=== PATIENT | male | born 1930 | race Caucasian/White ===

== ENCOUNTER 2017-01-29 12:43 | Inpatient (IN) | payer MEDICARE, MEDICAID ==
[~2017-01-29] VITALS: Ht 167.6 cm; Wt 88.0 kg
[~2017-01-29 12:43] MED LIST: AMLO5TAB4 PO; ARIP2TAB9 PO; CLON0.5T PO; DONE10TA44 PO; MEMA10TA PO; OMEP20TA68 PO; Paroxetine Hcl PO; SIMV10TA6 PO; TAMS0.4C34 PO
[2017-01-29] MEDS ORDERED: IV NORMAL SALINE 1000 ML BAG IV ONE (13:45)
[2017-01-29] MEDS ORDERED: LEVOFLOXACIN 750MG/D5W 150 ML IV ONE ×2 (13:45→14:00)
[2017-01-29 13:55] LABS: BASOPHILS % (AUTO) 0.4 % (0.0-2.0); EOSINOPHILS # (AUTO) 0.1 K/uL (0.0-0.7); EOSINOPHILS % (AUTO) 1.8 % (0.0-7.0); HEMATOCRIT 41.4 % (40.0-50.0); HEMOGLOBIN 13.4 g/dL (14.0-18.0); LYMPHOCYTES # (AUTO) 2.1 K/uL (0.8-4.8); LYMPHOCYTES % (AUTO) 28.9 % (20.5-51.5); MEAN CORPUSCULAR HEMOGLOBIN 28.5 uug (27.0-31.0); MEAN CORPUSCULAR HGB CONC 32 g/dL (32.0-37.0); MEAN CORPUSCULAR VOLUME 88.1 fL (82.0-92.0); MONOCYTES # (AUTO) 0.6 K/uL (0.1-1.30); MONOCYTES % (AUTO) 8.3 % (0.0-11.0); NEUTROPHILS # (AUTO) 4.6 K/uL (1.8-8.9); NEUTROPHILS % (AUTO) 60.6 % (38.5-71.5); PLATELET COUNT (AUTO) 200 K/uL (150-450); RED CELL DISTRIBUTION WIDTH 13.2 % (11.5-14.5); WHITE BLOOD COUNT (AUTO) 7.4 K/uL (4.0-11.2)
[2017-01-29 14:04] LABS: CALCIUM 8.9 mg/dL (8.5-10.1); POTASSIUM 4.1 mmol/L (3.5-5.1)
[2017-01-29 14:05] LABS: CREATININE 1.4 mg/dL (0.6-1.3)
[2017-01-29 14:12] LABS: TROPONIN I < 0.017 ng/mL (0.00-0.056)
[2017-01-29 14:17] LABS: BILIRUBIN,DIRECT 0.1 mg/dL (0.0-0.2); BILIRUBIN,TOTAL 0.4 mg/dL (0.2-1.0); TOTAL PROTEIN, SERUM 6.7 g/dL (6.4-8.2)
[2017-01-29 14:20] LABS: LACTIC ACID 1.6 mmol/L (0.4-2.0)
[2017-01-29 15:20] VITALS: BP 150/73
[2017-01-29] MEDS ORDERED: ACETAMINOPHEN 325 MG TABLET PO PRN (16:45)
[2017-01-29] MEDS ORDERED: LEVOFLOXACIN 500 MG/D5W 500 MG in PREMIXED 1 EACH IV SCH (16:45)
[2017-01-29] MEDS ORDERED: MORPHINE SULFATE 2 MG/1 ML DISP.SYRIN IV PRN (16:45)
[2017-01-29] MEDS ORDERED: ONDANSETRON 4 MG/2 ML VIAL IV PRN (16:45)
[2017-01-29] MEDS ORDERED: MAGNESIUM HYDROXIDE 30 ML LIQUID UDC PO PRN (16:45)
[2017-01-29 17:30] LABS: *BILIRUBIN,URIN NEGATIVE (NEGATIVE); *BLOOD, URINE Trace-lysed (NEGATIVE); *CLARITY,URINE CLEAR (CLEAR); *COLOR,URINE YELLOW (YELLOW); *KETONES,URINE NEGATIVE (NEGATIVE); *PROTEIN,URINE NEGATIVE (NEGATIVE); LEUKOCYTE ESTERASE ,URINE NEGATIVE (NEGATIVE); NITRITE, URINE NEGATIVE (NEGATIVE); UGLUCOSE NEGATIVE (NEGATIVE)
[2017-01-29] MEDS ORDERED: AZITHROMYCIN IV 500 MG in IV DEXTROSE 5% 250 ML IV SCH (17:30)
[2017-01-29 17:54] LABS: BACTERIA,URINE FEW /HPF (NONE SEEN); WBC,URINE 0-3 /HPF (0-3)
[2017-01-29 17:55] LABS: SQUAMOUS EPITHELIAL CELL,UR FEW /HPF (NONE SEEN); URINE AMORPHOUS PHOSPHATES FEW /HPF
[2017-01-29 17:56] LABS: MUCUS,URINE MODERATE /LPF (0-FEW)
[2017-01-29] MEDS: MEMANTINE HCL 10 MG TABLET PO SCH (17:57)
[2017-01-29] MEDS: CLONAZEPAM 0.5 MG TABLET PO SCH (17:59)
[2017-01-29] MEDS: CEFTRIAXONE 1 G in IV DEXTROSE 5% 50 ML IV SCH (17:59)
[2017-01-29] MEDS: IV 1/2NS 1000 ML 1,000 ML IV PRN (18:07)
[2017-01-29 20:00] VITALS: BP 151/77
[2017-01-29] MEDS ORDERED: AZITHROMYCIN IV 500 MG in IV DEXTROSE 5% 250 ML IV ONE (20:00)
[2017-01-29] MEDS: DOCUSATE SODIUM 250 MG CAPSULE PO SCH (21:07)
[2017-01-29] MEDS: TAMSULOSIN HCL 0.4 MG CAP.SR.24H PO SCH (21:08)
[2017-01-29] MEDS: SIMVASTATIN 10 MG TABLET PO SCH (21:08)
[2017-01-29] MEDS: DONEPEZIL 10 MG TABLET PO SCH (21:08)
[2017-01-29] MEDS: AMLODIPINE 5 MG TABLET PO SCH (21:08)
[2017-01-30] MEDS ORDERED: GUAIFENESIN/DEXTROMETHORPHAN 5 ML UDC PO PRN
[2017-01-30] MEDS ORDERED: IPRATROPIUM BROMIDE 0.5 MG/2.5 ML NEBU NEB PRN
[2017-01-30] MEDS ORDERED: ALBUTEROL SULFATE 2.5 MG/3 ML NEBU NEB PRN
[2017-01-30 00:30] VITALS: BP 147/69
[2017-01-30] MEDS ORDERED: GUAIFENESIN/DEXTROMETHORPHAN 5 ML UDC ONE (02:30)
[2017-01-30] MEDS ORDERED: ALBUTEROL SULFATE 2.5 MG/3 ML NEBU ONE (02:31)
[2017-01-30] MEDS ORDERED: IPRATROPIUM BROMIDE 0.5 MG/2.5 ML NEBU ONE (02:31)
[2017-01-30 04:00] VITALS: BP 129/61
[2017-01-30] MEDS: PANTOPRAZOLE SODIUM 40 MG TABLET.DR PO SCH (06:37)
[2017-01-30 07:41] LABS: BASOPHILS % (AUTO) 0.1 % (0.0-2.0); EOSINOPHILS # (AUTO) 0.1 K/uL (0.0-0.7); EOSINOPHILS % (AUTO) 1.7 % (0.0-7.0); HEMATOCRIT 38.2 % (40.0-50.0); HEMOGLOBIN 12.7 g/dL (14.0-18.0); LYMPHOCYTES # (AUTO) 2.4 K/uL (0.8-4.8); LYMPHOCYTES % (AUTO) 28.5 % (20.5-51.5); MEAN CORPUSCULAR HEMOGLOBIN 29.5 uug (27.0-31.0); MEAN CORPUSCULAR HGB CONC 33 g/dL (32.0-37.0); MEAN CORPUSCULAR VOLUME 88.7 fL (82.0-92.0); MONOCYTES # (AUTO) 0.8 K/uL (0.1-1.30); MONOCYTES % (AUTO) 9.1 % (0.0-11.0); NEUTROPHILS # (AUTO) 5.2 K/uL (1.8-8.9); NEUTROPHILS % (AUTO) 60.6 % (38.5-71.5); PLATELET COUNT (AUTO) 151 K/uL (150-450); RED BLOOD CELL COUNT(AUTO) 4.31 MIL/uL (4.70-6.10); RED CELL DISTRIBUTION WIDTH 13.4 % (11.5-14.5); WHITE BLOOD COUNT (AUTO) 8.5 K/uL (4.0-11.2)
[2017-01-30 07:48] LABS: ALBUMIN 2.9 g/dL (3.4-5.0); BILIRUBIN,TOTAL 0.4 mg/dL (0.2-1.0); CALCIUM 8.8 mg/dL (8.5-10.1); CREATININE 1.3 mg/dL (0.6-1.3); MAGNESIUM 1.9 mg/dL (1.8-2.4); PHOSPHOROUS 3.4 mg/dL (2.5-4.9); POTASSIUM 3.9 mmol/L (3.5-5.1); TOTAL PROTEIN, SERUM 6.4 g/dL (6.4-8.2)
[2017-01-30] MEDS: MEMANTINE HCL 10 MG TABLET PO SCH ×2 (08:20→18:37)
[2017-01-30] MEDS: CLONAZEPAM 0.5 MG TABLET PO SCH ×3 (08:21→18:38)
[2017-01-30] MEDS: ARIPIPRAZOLE 2 MG TABLET PO SCH (08:25)
[2017-01-30] MEDS: AMLODIPINE 5 MG TABLET PO SCH ×2 (08:27→21:16)
[2017-01-30 08:38] LABS: THYROID STIMULATING HORMONE 1.134 mIU/mL (0.358-3.740)
[2017-01-30] MEDS ORDERED: PAROXETINE HCL 20 MG TABLET PO SCH (09:00)
[2017-01-30] MEDS ORDERED: PAROXETINE HCL PO SCH (09:00)
[2017-01-30] MEDS ORDERED: CITA40TA22 PO (11:41)
[2017-01-30] MEDS ORDERED: ERYT3.5O24 RIGHTEYE (11:41)
[2017-01-30] MEDS ORDERED: DEXL60CA3 PO (11:41)
[2017-01-30] MEDS ORDERED: LORA1TAB PO (11:41)
[2017-01-30] MEDS ORDERED: TETR15DR86 OP (11:41)
[2017-01-30 11:55] VITALS: BP 131/63
[2017-01-30] MEDS: IV 1/2NS 1000 ML 1,000 ML IV PRN (13:55)
[2017-01-30 15:42] VITALS: BP 133/70
[2017-01-30] MEDS: CEFTRIAXONE 1 G in IV DEXTROSE 5% 50 ML IV SCH (17:30)
[2017-01-30 19:00] VITALS: BP 149/71
[2017-01-30] MEDS: AZITHROMYCIN IV 500 MG in IV DEXTROSE 5% 250 ML IV SCH (20:18)
[2017-01-30] MEDS: DOCUSATE SODIUM 250 MG CAPSULE PO SCH (21:00)
[2017-01-30] MEDS ORDERED: LEVOFLOXACIN 500 MG/D5W 500 MG in PREMIXED 1 EACH IV ONE (21:00)
[2017-01-30] MEDS: DONEPEZIL 10 MG TABLET PO SCH (21:15)
[2017-01-30] MEDS: TAMSULOSIN HCL 0.4 MG CAP.SR.24H PO SCH (21:15)
[2017-01-30] MEDS: SIMVASTATIN 10 MG TABLET PO SCH (21:16)
[2017-01-31 04:00] VITALS: BP 131/59
[2017-01-31] MEDS: IV 1/2NS 1000 ML 1,000 ML IV PRN (05:56)
[2017-01-31] MEDS: PANTOPRAZOLE SODIUM 40 MG TABLET.DR PO SCH (06:06)
[2017-01-31 07:16] LABS: BASOPHILS % (AUTO) 0.3 % (0.0-2.0); EOSINOPHILS # (AUTO) 0.2 K/uL (0.0-0.7); EOSINOPHILS % (AUTO) 2.2 % (0.0-7.0); HEMATOCRIT 38.4 % (40.0-50.0); HEMOGLOBIN 12.6 g/dL (14.0-18.0); LYMPHOCYTES # (AUTO) 2.7 K/uL (0.8-4.8); LYMPHOCYTES % (AUTO) 31.1 % (20.5-51.5); MEAN CORPUSCULAR HEMOGLOBIN 29.6 uug (27.0-31.0); MEAN CORPUSCULAR HGB CONC 33 g/dL (32.0-37.0); MONOCYTES # (AUTO) 0.7 K/uL (0.1-1.30); NEUTROPHILS # (AUTO) 5.1 K/uL (1.8-8.9); NEUTROPHILS % (AUTO) 58.4 % (38.5-71.5); PLATELET COUNT (AUTO) 181 K/uL (150-450); RED BLOOD CELL COUNT(AUTO) 4.27 MIL/uL (4.70-6.10); RED CELL DISTRIBUTION WIDTH 13.3 % (11.5-14.5); WHITE BLOOD COUNT (AUTO) 8.7 K/uL (4.0-11.2)
[2017-01-31 08:05] LABS: ALBUMIN 2.8 g/dL (3.4-5.0); BILIRUBIN,TOTAL 0.5 mg/dL (0.2-1.0); CALCIUM 8.7 mg/dL (8.5-10.1); CREATININE 1.3 mg/dL (0.6-1.3); MAGNESIUM 1.7 mg/dL (1.8-2.4); PHOSPHOROUS 3.2 mg/dL (2.5-4.9); POTASSIUM 3.9 mmol/L (3.5-5.1); TOTAL PROTEIN, SERUM 6.4 g/dL (6.4-8.2)
[2017-01-31] MEDS: CLONAZEPAM 0.5 MG TABLET PO SCH ×3 (08:13→17:59)
[2017-01-31] MEDS: MEMANTINE HCL 10 MG TABLET PO SCH ×2 (08:13→17:59)
[2017-01-31] MEDS: ARIPIPRAZOLE 2 MG TABLET PO SCH (08:14)
[2017-01-31] MEDS: AMLODIPINE 5 MG TABLET PO SCH ×2 (08:26→20:40)
[2017-01-31] MEDS ORDERED: FUROSEMIDE 20 MG/2 ML VIAL IV ONE (08:45)
[2017-01-31] MEDS ORDERED: MAGNESIUM SULFATE/D5W 100 ML IV SCH (08:45)
[2017-01-31 12:00] VITALS: BP 124/67
[2017-01-31 14:00] VITALS: BP 135/62
[2017-01-31] MEDS: CEFTRIAXONE 1 G in IV DEXTROSE 5% 50 ML IV SCH (17:59)
[2017-01-31] MEDS: AZITHROMYCIN IV 500 MG in IV DEXTROSE 5% 250 ML IV SCH (19:58)
[2017-01-31] MEDS: DOCUSATE SODIUM 100 MG CAPSULE PO SCH (20:40)
[2017-01-31] MEDS: TAMSULOSIN HCL 0.4 MG CAP.SR.24H PO SCH (20:40)
[2017-01-31] MEDS: SIMVASTATIN 10 MG TABLET PO SCH (20:40)
[2017-01-31] MEDS: DONEPEZIL 10 MG TABLET PO SCH (20:40)
[2017-01-31] MEDS ORDERED: LEVOFLOXACIN 250MG /D5W 250 MG in PREMIXED 1 EACH IV SCH (21:00)
[2017-01-31 22:12] VITALS: BP 118/68
[2017-02-01] MEDS: PANTOPRAZOLE SODIUM 40 MG TABLET.DR PO SCH (06:33)
[2017-02-01 07:05] VITALS: BP 142/65
[2017-02-01] MEDS: MEMANTINE HCL 10 MG TABLET PO SCH ×2 (08:22→16:54)
[2017-02-01] MEDS: AMLODIPINE 5 MG TABLET PO SCH ×2 (08:22→22:15)
[2017-02-01] MEDS: ARIPIPRAZOLE 2 MG TABLET PO SCH (08:23)
[2017-02-01] MEDS: CITALOPRAM 20 MG TABLET PO SCH (08:23)
[2017-02-01] MEDS: CLONAZEPAM 0.5 MG TABLET PO SCH ×3 (08:23→16:54)
[2017-02-01] MEDS: ERYTHROMYCIN 0.5% OPHT OINT 3.5 GM TUBE RIGHTEYE SCH ×2 (08:25→16:54)
[2017-02-01 12:00] VITALS: BP 106/53
[2017-02-01 16:10] VITALS: BP 115/52
[2017-02-01] MEDS: CEFTRIAXONE 1 G in IV DEXTROSE 5% 50 ML IV SCH (18:01)
[2017-02-01 20:34] VITALS: BP 112/54
[2017-02-01] MEDS: AZITHROMYCIN IV 500 MG in IV DEXTROSE 5% 250 ML IV SCH (20:39)
[2017-02-01] MEDS: SIMVASTATIN 10 MG TABLET PO SCH (22:13)
[2017-02-01] MEDS: DOCUSATE SODIUM 100 MG CAPSULE PO SCH (22:13)
[2017-02-01] MEDS: TAMSULOSIN HCL 0.4 MG CAP.SR.24H PO SCH (22:13)
[2017-02-01] MEDS: DONEPEZIL 10 MG TABLET PO SCH (22:13)
[2017-02-02 05:00] VITALS: BP 151/68
[2017-02-02] MEDS: PANTOPRAZOLE SODIUM 40 MG TABLET.DR PO SCH (06:56)
[2017-02-02 08:06] LABS: BASOPHILS % (AUTO) 0.4 % (0.0-2.0); CALCIUM 8.6 mg/dL (8.5-10.1); CREATININE 1.2 mg/dL (0.6-1.3); EOSINOPHILS # (AUTO) 0.3 K/uL (0.0-0.7); EOSINOPHILS % (AUTO) 3.3 % (0.0-7.0); HEMATOCRIT 39.2 % (40.0-50.0); HEMOGLOBIN 13.1 g/dL (14.0-18.0); LYMPHOCYTES # (AUTO) 2.5 K/uL (0.8-4.8); LYMPHOCYTES % (AUTO) 27.8 % (20.5-51.5); MAGNESIUM 1.8 mg/dL (1.8-2.4); MEAN CORPUSCULAR HEMOGLOBIN 29.6 uug (27.0-31.0); MEAN CORPUSCULAR HGB CONC 33 g/dL (32.0-37.0); MEAN CORPUSCULAR VOLUME 88.5 fL (82.0-92.0); MONOCYTES # (AUTO) 0.8 K/uL (0.1-1.30); NEUTROPHILS # (AUTO) 5.3 K/uL (1.8-8.9); NEUTROPHILS % (AUTO) 59.5 % (38.5-71.5); PHOSPHOROUS 3.7 mg/dL (2.5-4.9); PLATELET COUNT (AUTO) 183 K/uL (150-450); RED BLOOD CELL COUNT(AUTO) 4.43 MIL/uL (4.70-6.10); RED CELL DISTRIBUTION WIDTH 13.5 % (11.5-14.5); WHITE BLOOD COUNT (AUTO) 8.9 K/uL (4.0-11.2)
[2017-02-02] MEDS: CLONAZEPAM 0.5 MG TABLET PO SCH ×2 (08:17→14:03)
[2017-02-02] MEDS: CITALOPRAM 20 MG TABLET PO SCH (08:17)
[2017-02-02] MEDS: MEMANTINE HCL 10 MG TABLET PO SCH (08:17)
[2017-02-02] MEDS: AMLODIPINE 5 MG TABLET PO SCH (08:17)
[2017-02-02] MEDS: ERYTHROMYCIN 0.5% OPHT OINT 3.5 GM TUBE RIGHTEYE SCH (08:21)
[2017-02-02] MEDS: ARIPIPRAZOLE 2 MG TABLET PO SCH (08:21)
[2017-02-02 11:36] VITALS: BP 109/53
[2017-02-02] MEDS ORDERED: Guaifenesin/D-Methorphan Hb PO (14:50)
[2017-02-02] MEDS ORDERED: CITA20TA19 PO (14:50)
[2017-02-02] MEDS ORDERED: Docusate Sodium PO (14:50)
[2017-02-02] MEDS ORDERED: Acetaminophen PO (14:50)
[2017-02-02] MEDS ORDERED: Erythromycin Base RIGHTEYE (14:50)
[2017-02-02] MEDS ORDERED: SIMV10TA6 PO (14:50)
[2017-02-02] MEDS ORDERED: TAMS-3 PO (14:50)
[2017-02-02] MEDS ORDERED: ALBU2.5V7 NEB (14:50)
[2017-02-02] MEDS ORDERED: IPRA0.2S6 NEB (14:50)
[2017-02-02 15:29] VITALS: BP 112/54
[2017-02-02] MEDS ORDERED: AZITHROMYCIN 250 MG TABLET PO SCH (20:00)
[2017-02-03] MEDS ORDERED: CITALOPRAM 20 MG TABLET PO SCH (09:00)
== END 2017-02-02 17:00 | DRG 177 ==
LOC: ER 12:43 → TELE 14:58 → MED 15:18 → TELE 17:00 → MED 01-30 09:58
PROVIDERS: ADMIT Internal Medicine; ATTEND Internal Medicine
DX: J69.0 Pneumonitis due to inhalation of food and vomit (principal); G93.40 Encephalopathy, unspecified; E43 Unspecified severe protein-calorie malnutrition; D68.59 Other primary thrombophilia; I50.32 Chronic diastolic (congestive) heart failure; J98.11 Atelectasis; F03.90 Unspecified dementia, unspecified severity, without behavioral disturbance, psychotic disturbance, mood disturbance, and anxiety; K21.9 Gastro-esophageal reflux disease without esophagitis; N40.0 Benign prostatic hyperplasia without lower urinary tract symptoms; Z79.899 Other long term (current) drug therapy; Z85.46 Personal history of malignant neoplasm of prostate; R00.1 Bradycardia, unspecified; E78.5 Hyperlipidemia, unspecified; I11.0 Hypertensive heart disease with heart failure; H01.003 Unspecified blepharitis right eye, unspecified eyelid; R73.03 Prediabetes; E66.9 Obesity, unspecified; D64.9 Anemia, unspecified; M85.08 Fibrous dysplasia (monostotic), other site; Z68.31 Body mass index [BMI] 31.0-31.9, adult; D17.79 Benign lipomatous neoplasm of other sites
CPT/HCPCS: 36415; 70030-TC; 70450; 71010; 83605; 83735; 84100; 84153; 84443; 85025; 85730; 87040; 87086; 92506; 93005; 93307; 94664; 97001; 97003; 97110; 97530; 97535; A4217; A4663; J0456; J0696; J1940; J1956; J3475; J3490; J3590; J7030; J7060